=== PATIENT | male | born 1975 | race Caucasian/White ===

== ENCOUNTER 2017-01-12 19:19 | Emergency (ER) | payer OTHER, BC ==
--- NOTE | ~2017-01-12 | CT71 ---
[facility] A Service of [facility] RADIOLOGY TEXT RESULTS PATIENT: DENG MORGAN LOCATION: SED : 71 UNIT #: [id number] AGE: [address]: Phil Fitch MD SEX: M ORDER DR: [id number] [place] [address] [id number] E MR#: [id number] Acc #: [id number] NAME: DENG MORGAN : 1975 SEX: M STUDY DATE/TIME: 01/12/2017 19:41 UNIT: SED ROOM: STUDY DESCRIPTION: CT Head Wo Contrast Attending Physician: Phil Fitch M.D. Ordering Physician: Phil Fitch M.D. Primary Care Physician: Primary Care Physician No MEDICAL IMAGING REPORT This report is preliminary unless electronic signature is present. EXAM Noncontrast head CT HISTORY Migraines, dizziness, right leg weakness. History of closed head injury 1998. TECHNIQUE This CT examination was performed with one or more of the following radiation dose reduction techniques: automatic exposure control, adjustment of mA and/or kV according to patient size, and iterative reconstruction. FINDINGS Axial noncontrast imaging of the brain is somewhat degraded due to image noise. There is subtle hyperdensity in the left frontal periventricular white matter probably artifactual but could represent an area of petechial hemorrhage. No mass, mass effect, or midline shift. Ventricles, sulci and basilar cisterns appear normal. Bilateral ethmoid sinus mucosal disease. Mastoids, skull base unremarkable. IMPRESSION Subtle hyperdensity within the left frontal periventricular white matter measuring no more than 4-5 mm could be artifactual but a small area of petechial hemorrhage not excluded. Correlate with patient's risk factors and clinical presentation. Clearly, no evidence of mass effect or midline shift. [facility] of [facility] RADIOLOGY TEXT RESULTS PATIENT: DENG MORGAN LOCATION: SED : 71 UNIT #: [id number] AGE: [address]: Phil Fitch MD SEX: M ORDER DR: Dictated by... Madan Bojorquez M.D. THIS IS AN ELECTRONICALLY VERIFIED REPORT Madan Bojorquez M.D. at 01/13/2017 6:32 PM CORNELIA/kelsie TD: 01/13/2017 09:29 JOB #: [id number] MEDICAL IMAGING REPORT
--- NOTE | ~2017-01-12 | CT71 ---
[facility] A Service of [facility] RADIOLOGY TEXT RESULTS PATIENT: DENG MORGAN LOCATION: SED : 71 UNIT #: [id number] AGE: [address]: Phil Fitch MD SEX: M ORDER DR: [id number] [address] [address] [id number] E MR#: [id number] Acc #: [id number] NAME: DENG MORGAN : 1975 SEX: M STUDY DATE/TIME: 01/12/2017 20:31 UNIT: SED ROOM: STUDY DESCRIPTION: CT Head Wo Contrast Attending Physician: Phil Fitch M.D. Ordering Physician: Phil Fitch M.D. Primary Care Physician: No Primary Care Physician MEDICAL IMAGING REPORT This report is preliminary unless electronic signature is present. EXAM Noncontrast head CT. HISTORY Migraines, dizziness, right leg weakness, hypertension for 1.5 weeks, reassess for possible intracranial bleed. TECHNIQUE This CT exam was performed with one or more of the following radiation dose reduction techniques: Automatic exposure control, adjustment of mA and/or kV according to patient size, and iterative reconstruction. FINDINGS Repeat noncontrast head CT demonstrates that the area of hyperdensity in the left frontal periventricular white matter is less conspicuous and most likely artifactual. Clearly no evidence of significant bleed. No mass or mass effect or midline shift. IMPRESSION The area of concern in the left frontal periventricular white matter is less conspicuous or essentially resolved on the followup imaging and is felt to represent an artifact Dictated by... Madan Bojorquez M.D. THIS IS AN ELECTRONICALLY VERIFIED REPORT Madan Bojorquez M.D. at 01/13/2017 6:33 PM CORNELIA/abdias TD: 01/13/2017 09:42 JOB #: [id number] [facility] A Service of [facility] RADIOLOGY TEXT RESULTS PATIENT: DENG MORGAN LOCATION: [facility] : [birth year] UNIT #: [id number] AGE: [address]: Phil Fitch MD SEX: M ORDER DR: MEDICAL IMAGING REPORT
[~2017-01-12 19:19] MED LIST: NAPROXEN500 M1 PO; ZYLOPRIM PO
== END 2017-01-12 21:03 | disposition home or self-care (01) ==
LOC: SED 19:19
DX: R51 Headache (principal); I10 Essential (primary) hypertension; F17.200 Nicotine dependence, unspecified, uncomplicated
CPT/HCPCS: 70450; 96372; 99284; J1885

== ENCOUNTER 2017-05-17 00:58 | Emergency (ER) | payer OTHER ==
[~2017-05-17] VITALS: Ht 182.9 cm; Wt 110.2 kg
[2017-05-17 01:38] LABS: BASOPHIL# 0.1 X10e3 (0-0.3); EOSINOPHIL# 0.5 X10e3 (0-0.7); EOSINOPHIL% 3.9 % (0.0-7.0); HEMATOCRIT 46.8 % (38.0-50.0); HEMOGLOBIN 15.7 gm/dL (13.0-16.0); LYMPHOCYTE% 24.2 % (17.0-45.0); MEAN CELL VOLUME 91.2 FL (83-96); MEAN CORPUSCULAR HEMOGLOBIN 30.6 PG (28-34); MEAN CORPUSCULAR HGB CONC 33.6 g/dL (30-36); MEAN PLATELET VOLUME 8.6 FL (6.5-11.5); MONOCYTE# 0.7 X10e3 (0-1.0); MONOCYTE% 5.5 % (3.0-12.0); NEUTROPHIL% 65.4 % (40-75); PLATELET COUNT 286 X10e3 (140-420); RED BLOOD COUNT 5.14 X10e (3.90-5.60); RED CELL DISTRIBUTION WIDTH 14.4 % (11.0-15.5); WHITE BLOOD COUNT 12.2 X10e3 (4.0-10.5)
[2017-05-17 01:40] LABS: DIFF IND NO
[2017-05-17 01:41] LABS: PROTHROMBIN TIME (PATIENT) 11.2 SECONDS (9.5-12.4)
[2017-05-17 01:48] LABS: CALCIUM SERUM 8.6 mg/dL (8.4-10.2); GLOM FILT RATE Estimated 91.8 mL/min (>60); PARTIAL THROMBOPLASTIN TIME 29.4 SECONDS (25.6-38.1); POTASSIUM 3.4 mmol/L (3.5-5.1)
[2017-05-17 05:25] LABS: HEMOGLOBIN 15.3 gm/dL (13.0-16.0); MEAN CELL VOLUME 90.9 FL (83-96); MEAN CORPUSCULAR HEMOGLOBIN 30.3 PG (28-34); MEAN CORPUSCULAR HGB CONC 33.3 g/dL (30-36); MEAN PLATELET VOLUME 8.5 FL (6.5-11.5); RED BLOOD COUNT 5.06 X10e (3.90-5.60); WHITE BLOOD COUNT 14.6 X10e3 (4.0-10.5)
[2017-05-17 05:42] LABS: PROTHROMBIN TIME (PATIENT) 10.8 SECONDS (9.5-12.4)
[2017-05-17 05:49] LABS: PARTIAL THROMBOPLASTIN TIME 29.2 SECONDS (25.6-38.1)
== END 2017-05-17 06:15 | disposition home or self-care (01) ==
LOC: SED 00:58
PROVIDERS: Emergency Medicine
DX: T63.001A Toxic effect of unspecified snake venom, accidental (unintentional), initial encounter (principal); F17.200 Nicotine dependence, unspecified, uncomplicated; Z79.899 Other long term (current) drug therapy
CPT/HCPCS: 36415; 80048; 85025; 85027; 85610; 85730; 96374; 96375; 99283; J2270; J2405